=== PATIENT | male | born 1960 | race Caucasian/White ===

== ENCOUNTER 2017-12-18 11:15 | Day surgery (SDC) | payer BC ==
[2017-12-17 15:06] VITALS: BMI 34.8
[2017-12-18] MEDS ORDERED: PROPOFOL 20 ML ONE ×2 (11:37)
[2017-12-18 13:51] VITALS: BP 110/65; PULSE 60; TEMP 98
--- NOTE | 2017-12-20 15:44 | PATH ---
Surgical Pathology Report Patient Name: TALAT DIAZ [facility]. Rec. #: [id number] /Age/Gender: 1960 (Age: 57) / M Account: [id number] Location: [facility]-ENDOSCOPY Taken: 12/18/2017 Received: 12/18/2017 Reported: 12/20/2017 Physicians: Elise Avila M.D. Specimen(s) Received A: PROXIMAL TRANSVERSE BX B: BX DISTAL TRANSVERSE Clinical History Preoperative diagnosis: Rule out colon cancer Postoperative diagnosis: Polyps Final Diagnosis A. COLON, PROXIMAL TRANSVERSE, BIOPSY: HYPERPLASTIC POLYP. B. COLON, DISTAL TRANSVERSE, BIOPSY: COLONIC MUCOSA WITH NO PATHOLOGIC CHANGES. NO ADENOMATOUS OR HYPERPLASTIC CHANGES IDENTIFIED. Electronically Signed Yasir Boggs M.D. Gross Description A. Received in formalin, labeled "proximal transverse" are 2 dickens, irregular portions of soft tissue averaging 0.1 cm. in greatest dimension. The specimens are submitted in toto in one cassette. B. Received in formalin, labeled "distal transverse" is a dickens, irregular portion of soft tissue measuring 0.5 cm. in greatest dimension. The specimen is submitted in toto in one cassette. DL12/19/2017 saudi12/19/2017
== END 2017-12-18 13:35 | disposition home or self-care (01) ==
LOC: FASU-ENDO 11:15
PROVIDERS: ATTEND Internal Medicine Gastroenterology
PROC: 0DBL8ZX Excision of Transverse Colon, Via Natural or Artificial Opening Endoscopic, Diagnostic (ICD-10-PCS; principal; 2017-12-18 12:18)
DX: Z12.11 Encounter for screening for malignant neoplasm of colon (principal); K64.2 Third degree hemorrhoids; K57.30 Diverticulosis of large intestine without perforation or abscess without bleeding; K63.5 Polyp of colon
CPT/HCPCS: 88305-TC

== ENCOUNTER 2019-01-10 09:22 | Emergency (ER) | payer BC ==
[2019-01-10 09:31] VITALS: BMI 37.6
[2019-01-10] MEDS ORDERED: SODIUM CHLORIDE 1,000 ML IV STA (09:47)
[2019-01-10 10:30] LABS: BASO % 0.4 % (0-2.0); EOS % 2.8 % (0-4.5); HEMOGLOBIN 15.6 GM/dL (11.7-16.9); LYMPH % 21.1 % (8-40); MCH 28.7 pg (25.7-33.7); MCHC 34.6 g/dl (32.0-35.9); MEAN CELL VOLUME 82.8 fl (80-96); MEAN PLT VOLUME 7.7 fl (7.5-11.1); MONO % 7.3 % (3.8-10.2); NEUT % 68.4 % (42.8-82.8); PLATELET COUNT 190 K/MM3 (134-434); RBC 5.44 M/mm3 (4.00-5.60); RDW 13.5 % (11.9-15.9); WHITE BLOOD COUNT 5.7 K/mm3 (4.0-10.0)
[2019-01-10 10:34] LABS: URINE APPEARANCE CLEAR; URINE BILIRUBIN NEGATIVE (<2.0 mg/dL); URINE COLOR STRAW; URINE GLUCOSE (UA) NEGATIVE (NEGATIVE); URINE KETONE NEGATIVE (NEGATIVE); URINE LEUK ESTERASE NEGATIVE (NEGATIVE); URINE NITRITE NEGATIVE (NEGATIVE); URINE PROTEIN NEGATIVE (NEGATIVE); URINE UROBILINOGEN NEGATIVE mg/dL (0.2-1.0)
[2019-01-10 10:41] LABS: INR 1.05 (0.83-1.09); PROTHROMBIN TIME (PATIENT) 12.4 SEC (9.7-13.0)
[2019-01-10 10:56] LABS: ALBUMIN 4.1 g/dl (3.4-5.0); ALK PHOS 74 U/L (45-117); ANION GAP 5 MMOL/L (8-16); BILIRUBIN,TOTAL 0.5 mg/dL (0.2-1); BLOOD UREA NITROGEN 18 mg/dL (7-18); CHLORIDE 101 mmol/L (98-107); CO2 31 mmol/L (21-32); CREATININE 1.2 mg/dL (0.55-1.3); GLUCOSE,RANDOM 108 mg/dL (74-106); MAGNESIUM 2.1 mg/dL (1.8-2.4); SGOT/AST 23 U/L (15-37); SGPT/ALT 35 U/L (13-61); SODIUM 137 mmol/L (136-145); TOT PROT 7.6 g/dl (6.4-8.2)
--- NOTE | 2019-01-10 11:16 | PDOC ---
History of Present Illness - General Chief Complaint: Lightheaded Stated Complaint: DIZZINESS Time Seen by Provider: 01/10/19 09:37 History Source: Patient Exam Limitations: No Limitations - History of Present Illness Initial Comments: 01/10/19 11:17 Patient is a 58M with history of HTN, ISIDRO, two normal heart caths here today complaining of near syncope. Patient states that he skipped breakfast, did his normal workout, and then started feeling weak. Denies LOC, says that he rapidly improved. Denies chest pain, shortness of breath. Denies nausea, vomiting, fevers, chills. Denies abdominal pain and headache. Denies leg swelling and history of blood clots. Patient states that he has had problems with dehydration before 2/2 HCTZ use. Past History - Past Medical History Allergies/Adverse Reactions: Allergies Allergy/AdvReac Type Severity Reaction Status Date / Time No Known Drug Allergies Allergy Verified 01/10/19 10:06 Home Medications: Ambulatory Orders Amlodipine Besylate [Norvasc -] 10 mg PO DAILY 05/03/13 Hydrochlorothiazide [Hctz] 12.5 mg PO DAILY 05/03/13 Rosuvastatin Calcium [Crestor] 5 mg PO DAILY 05/03/13 Losartan Potassium 50 mg PO DAILY 11/04/14 Ubidecarenone [Co Q-10] 200 mg PO DAILY 11/04/14 Alprazolam 0.5 mg PO HS PRN 12/17/17 Aspirin [Ecotrin] 81 mg PO DAILY 12/17/17 Metoprolol Succinate 25 mg PO DAILY 12/17/17 Anemia: No Asthma: No Cancer: No Cardiac Disorders: No CVA: No COPD: No Dementia: No Diabetes: No GI Disorders: No Disorders: Yes (BPH) HTN: Yes Hypercholesterolemia: Yes Liver Disease: No Seizures: No Thyroid Disease: No Other medical history: sleep apnea - Surgical History Abdominal Surgery: No Appendectomy: No Cardiac Surgery: Yes (CARDIAC CATH 2014,NORMAL) Cholecystectomy: No Lung Surgery: No Neurologic Surgery: No Orthopedic Surgery: No - Immunization History Immunization Up to Date: Yes - Suicide/Smoking/Psychosocial Hx Smoking Status: No Smoking History: Never smoked Have you smoked in the past 12 months: No Number of Cigarettes Smoked Daily: 0 Information on smoking cessation initiated: No Hx Alcohol Use: No Drug/Substance Use Hx: No Substance Use Type: None Hx Substance Use Treatment: No Review of Systems - Review of Systems Comments:: 01/10/19 11:19 GENERAL/CONSTITUTIONAL: No fever or chills. +weakness. HEAD, EYES, EARS, NOSE AND THROAT: No change in vision. No sore throat. CARDIOVASCULAR: No chest pain or shortness of breath RESPIRATORY: No cough, wheezing, or hemoptysis. GASTROINTESTINAL: No nausea, vomiting, diarrhea or constipation. GENITOURINARY: No dysuria, frequency, or change in urination. MUSCULOSKELETAL: No joint or muscle swelling or pain. No neck or back pain. SKIN: No rash NEUROLOGIC: No headache, vertigo, loss of consciousness, or change in strength/ sensation. ENDOCRINE: No increased thirst. No abnormal weight change HEMATOLOGIC/LYMPHATIC: No anemia, easy bleeding, or history of blood clots. ALLERGIC/IMMUNOLOGIC: No hives or skin allergy. *Physical Exam - Vital Signs Last Vital Signs Temp Pulse Resp BP Pulse Ox 97.6 F 62 18 137/84 99 01/10/19 09:57 01/10/19 09:57 01/10/19 09:57 01/10/19 09:57 01/10/19 09:57 - Physical Exam Comments: 01/10/19 11:20 GENERAL: Awake, alert, and fully oriented, in no acute distress HEAD: No signs of trauma, normocephalic, atraumatic EYES: PERRLA, EOMI, sclera anicteric, conjunctiva clear ENT: Auricles normal inspection, hearing grossly normal, nares patent, oropharynx clear without exudates. Moist mucosa NECK: Normal ROM, supple, no lymphadenopathy, JVD, or masses LUNGS: No distress, speaks full sentences, clear to auscultation bilaterally HEART: Regular rate and rhythm, normal S1 and S2, no murmurs, rubs or gallops, peripheral pulses normal and equal bilaterally. ABDOMEN: Soft, nontender, normoactive bowel sounds. No guarding, no rebound. No masses EXTREMITIES: Normal inspection, Normal range of motion, no edema. No clubbing or cyanosis. NEUROLOGICAL: Cranial nerves II through XII grossly intact. Normal speech, normal gait, no focal sensorimotor deficits SKIN: Warm, Dry, normal turgor, no rashes or lesions noted. Moderate Sedation - Procedure Monitoring Vital Signs: Procedure Monitoring Vital Signs Temperature 97.6 F 01/10/19 09:57 Pulse Rate 62 01/10/19 09:57 Respiratory Rate 18 01/10/19 09:57 Blood Pressure 137/84 01/10/19 09:57 O2 Sat by Pulse Oximetry (%) 99 01/10/19 09:57 ED Treatment Course - LABORATORY CBC & Chemistry Diagram: 01/10/19 09:57 01/10/19 09:57 - ADDITIONAL ORDERS Additional order review: Laboratory Results 01/10/19 01/10/19 10:20 09:57 PT with INR 12.40 INR 1.05 Urine Color Straw Urine Appearance Clear Urine pH 6.0 Ur Specific Harts 1.008 L Urine Protein Negative Urine Glucose (UA) Negative Urine Ketones Negative Urine Blood Negative Urine Nitrite Negative Urine Bilirubin Negative Urine Urobilinogen Negative Ur Leukocyte Esterase Negative 01/10/19 09:57 RBC 5.44 MCV 82.8 MCHC 34.6 RDW 13.5 MPV 7.7 Neutrophils % 68.4 Lymphocytes % 21.1 Monocytes % 7.3 Eosinophils % 2.8 Basophils % 0.4 - RADIOLOGY Radiology Studies Ordered: Category Date Time Status CHEST PA & LAT [RAD] Stat Radiology 01/10/19 09:47 Ordered - Medications Given in the ED: ED Medications Discontinued Medications Generic Name Dose Route Start Last Admin Trade Name Freq PRN Reason Stop Dose Admin Sodium Chloride 1,000 mls @ 1,000 mls/hr 01/10/19 09:47 01/10/19 10:16 Normal Saline - IV 01/10/19 10:46 1,000 mls/hr ASDIR STA Administration Medical Decision Making - Medical Decision Making 01/10/19 11:21 Patient is 58M with history of HTN and ISIDRO here today with near syncopes. Vitals normal and stable. EKG shows NSR with no st elevations/depressions. Normal axis. Normal intervals. T wave inversions in inferior leads, same as prior EKG in 2016. DDx includes, but is not limited to: dehydration, vasovagal, arrhythmia, acs. Will evaluate with cardiac labs, 2nd trop, cxr. Will treat with fluids. CBC, cmp, trop, normal. Patient states that he feels better after fluid administration. Case d/w Dr Castillo, agrees with plan. Patient will call Saturday for f/u. CXR clear. Pending second trop at 12:20 01/10/19 12:59 Trop neg x2. Patient feels better. Will dc home. *DC/Admit/Observation/Transfer Diagnosis at time of Disposition: Near syncope - Discharge Dispostion Disposition: HOME Condition at time of disposition: Good Decision to Admit order: No - Referrals Referrals: Julián Keating MD [Primary Care Provider] - - Patient Instructions Printed Discharge Instructions: DI for Syncope in Adults (Fainting) Additional Instructions: Please call your communication electronic technician for further follow up on Saturday. Please return if you have any new, worsening or concerning symptoms, especially chest pain, shortness of breath, and fever. - Post Discharge Activity
--- NOTE | 2019-01-10 11:59 | PDOC ---
Attending Attestation - Resident Resident Name: Thomas Easley - ED Attending Attestation I have performed the following: I have examined & evaluated the patient, The case was reviewed & discussed with the resident, I agree w/resident's findings & plan, Exceptions are as noted - HPI HPI: 01/10/19 11:54 58M with h/o HTN, ISIDRO, presenting to ED with lightheadedness. Pt states that he had just returned from taking out the trash and was standing in the kitchen when he suddenly felt lightheaded. Denies syncope, denies room spinning. The entire episode lasted about 10 seconds. Pt denies CP/SOB/palpitations. He has not had any recurrence of his symptoms. Now has no complaints. - Physicial Exam PE: 01/10/19 11:57 GENERAL: Awake, alert, and fully oriented, in no acute distress. HEAD: No signs of trauma EYES: PERRLA, EOMI, sclera anicteric, conjunctiva clear ENT: Auricles normal inspection, hearing grossly normal, nares patent, oropharynx clear without exudates. Moist mucosa NECK: Nontender, no stepoffs, Normal ROM, supple, no lymphadenopathy, JVD, or masses LUNGS: Breath sounds equal, clear to auscultation bilaterally. No wheezes, and no crackles HEART: Regular rate and rhythm, normal S1 and S2, no murmurs, rubs or gallops ABDOMEN: Soft, nontender, normoactive bowel sounds. No guarding, no rebound. No masses EXTREMITIES: Normal range of motion, no edema. No clubbing or cyanosis. No cords, erythema, or tenderness NEUROLOGICAL: Cranial nerves II through XII intact. 5/5 strength and sensation in all extremities, Normal speech, normal gait, normal cerebellar function SKIN: Warm, Dry, normal turgor, no rashes or lesions noted. - Medical Decision Making 01/10/19 11:57 58 M with 10 second episode of lightheadedness. Now asymptomatic w normal vitals and exam. EKG with no changes, no sign of arrhythmia. Will r/o ACS w 2 trops. - labs, trop - CXR, UA - discuss w pt's database specialist Dr. Sargent 01/10/19 13:05 Labs wnl Trop negative x2 Case discussed with pt's database specialist, who agrees with plan to DC with outpt f/ u. Pt is well appearing, with normal vitals. Clinically stable for DC at this time. I discussed the physical exam findings, ancillary test results and final diagnoses with the patient. I answered all of the patient's questions. The patient was satisfied with the care received and felt comfortable with the discharge plan and treatment plan. The patient agrees to follow up with the primary care physician within 24-72 hours.
[2019-01-10 13:19] VITALS: BP 136/80; PULSE 63; TEMP 98.1
--- NOTE | 2019-01-10 22:00 | EKG ---
Test Reason : Blood Pressure : / mmHG Vent. Rate : 062 BPM Atrial Rate : 062 BPM P-R Int : 162 ms QRS Dur : 098 ms QT Int : 396 ms P-R-T Axes : 033 033 -24 degrees QTc Int : 401 ms NORMAL SINUS RHYTHM T WAVE ABNORMALITY, CONSIDER INFERIOR ISCHEMIA ABNORMAL ECG WHEN COMPARED WITH ECG OF 04-MAY-2016 21:32, NO SIGNIFICANT CHANGE WAS FOUND Confirmed by DARIEL VÁSQUEZ MD ([id number]) on 01/10/2019 9:59:50 PM Referred By: Confirmed By:DARIEL VÁSQUEZ MD
== END 2019-01-10 13:18 | disposition home or self-care (01) ==
LOC: JER 09:22
PROC: 3E0337Z Introduction of Electrolytic and Water Balance Substance into Peripheral Vein, Percutaneous Approach (ICD-10-PCS; principal; 2019-01-10)
DX: R55 Syncope and collapse (principal); I10 Essential (primary) hypertension; N40.0 Benign prostatic hyperplasia without lower urinary tract symptoms; G47.33 Obstructive sleep apnea (adult) (pediatric); Z98.61 Coronary angioplasty status
CPT/HCPCS: 36415; 71046-TC-FY; 80053; 81003; 82550; 82553; 83735; 84484; 85025; 85610; 93005; 93010; 99284-25; J7030

== ENCOUNTER 2022-01-12 07:46 | Day surgery (SDC) | payer BC ==
[2022-01-04 16:00] VITALS: BMI 35.9
[2022-01-12] MEDS ORDERED: LIDOCAINE HCL/PF 2% SDV 5ML VIAL ONE (08:08)
[2022-01-12] MEDS ORDERED: PROPOFOL 20 ML ONE ×4 (08:08)
[2022-01-12 09:49] VITALS: PULSE 65; TEMP 97.8
[2022-01-12 10:29] VITALS: BP 101/64
== END 2022-01-12 10:30 | disposition home or self-care (01) ==
LOC: FASU-ENDO 07:46
PROVIDERS: ATTEND Internal Medicine Gastroenterology
PROC: 0DJD8ZZ Inspection of Lower Intestinal Tract, Via Natural or Artificial Opening Endoscopic (ICD-10-PCS; principal; 2022-01-12 09:22)
DX: Z86.010 Personal history of colon polyps (principal); K64.1 Second degree hemorrhoids; K57.30 Diverticulosis of large intestine without perforation or abscess without bleeding